=== PATIENT | female | born 1955 | race Caucasian/White ===

== ENCOUNTER 2019-05-07 13:03 | Inpatient (IN) | payer OTHER ==
[~2019-05-07] VITALS: Ht 162.6 cm; Wt 70.0 kg
[2019-05-07 16:37] LABS: BASOPHIL % 0.9 % (0-2); PLATELET COUNT 325 x10^3mcL (130-400); RED CELL DISTRIBUTION WIDTH 12.7 % (11.5-14.5)
[2019-05-07 17:20] LABS: CALCIUM 9.2 mg/dL (8.5-10.1); CARBON DIOXIDE 25.3 mmol/L (21-32); CHLORIDE SERUM 104 mmol/L (98-107); CREATININE SERUM 0.8 mg/dL (0.6-1.0); GFR1 > 60 mL/min; GLUCOSE SERUM 97 mg/dL (74-106); POTASSIUM SERUM 3.5 mmol/L (3.5-5.1); SODIUM SERUM 140 mmol/L (136-145)
[2019-05-07 17:24] LABS: ALBUMIN 4.3 g/dL (3.4-5.0); ALKALINE PHOSPHATASE 85 U/L (46-116); ALT/SGPT 33 U/L (14-59); AST/SGOT 16 U/L (15-37); BILIRUBIN TOTAL 0.6 mg/dL (0.20-1.00); CHOLESTEROL 173 mg/dL (<200)
[2019-05-07 17:26] LABS: TOTAL PROTEIN, SERUM 8.4 g/dL (6.4-8.2)
[2019-05-07 23:12] VITALS: BP 153/78
[2019-05-07 23:15] VITALS: Ht 162.6 cm; Wt 70.0 kg
[2019-05-08 05:32] VITALS: BP 112/63
[2019-05-08 05:59] LABS: BASOPHIL % 0.7 % (0-2); PLATELET COUNT 270 x10^3mcL (130-400); RED CELL DISTRIBUTION WIDTH 12.9 % (11.5-14.5)
[2019-05-08 06:44] LABS: CALCIUM 8.6 mg/dL (8.5-10.1); CHLORIDE SERUM 106 mmol/L (98-107); GLUCOSE SERUM 89 mg/dL (74-106); PHOSPHOROUS 4.2 mg/dL (2.5-4.9); POTASSIUM SERUM 3.8 mmol/L (3.5-5.1); SODIUM SERUM 141 mmol/L (136-145)
[2019-05-08 07:02] LABS: CREATININE SERUM 0.7 mg/dL (0.6-1.0); GFR1 > 60 mL/min; MAGNESIUM 2.4 mg/dL (1.8-2.4)
[2019-05-08 08:46] VITALS: BP 117/79
[2019-05-08 09:36] LABS: AMPHETAMINE QUAL UR NONE DETECTED (See below)
[2019-05-08 12:15] VITALS: BP 119/73
[2019-05-08 16:16] VITALS: BP 100/57
[2019-05-08 22:02] VITALS: BP 108/71
[2019-05-09 06:39] VITALS: BP 103/64
[2019-05-09 09:21] VITALS: BP 113/62
[2019-05-09 13:38] VITALS: BP 127/55
[2019-05-09 18:06] VITALS: BP 110/72
[2019-05-09 18:10] VITALS: BP 110/72
== END 2019-05-09 18:56 | disposition home or self-care (01) | DRG 69 ==
LOC: ED 13:03 → DU 22:15 → MU 05-09 17:08
PROVIDERS: Internal Medicine Nephrology; Specialist; ADMIT Internal Medicine Pulmonary Disease
DX: G45.9 Transient cerebral ischemic attack, unspecified (principal); J01.20 Acute ethmoidal sinusitis, unspecified; R29.700 NIHSS score 0; E78.00 Pure hypercholesterolemia, unspecified; R20.2 Paresthesia of skin; Z79.82 Long term (current) use of aspirin; Z68.26 Body mass index [BMI] 26.0-26.9, adult
CPT/HCPCS: 82962; 92526-GN; 92610-GN; G0378; G0480; J7030; Q9967

== ENCOUNTER 2019-07-26 11:24 | Emergency (ER) | payer OTHER, SELFPAY ==
[~2019-07-26] VITALS: Ht 154.9 cm; Wt 54.4 kg
[2019-07-26 11:45] VITALS: Ht 154.9 cm; Wt 54.4 kg
[2019-07-26 13:17] LABS: BASOPHIL % 0.4 % (0-2); PLATELET COUNT 294 x10^3mcL (130-400); RED CELL DISTRIBUTION WIDTH 12.6 % (11.5-14.5)
[2019-07-26 13:19] VITALS: BP 133/81
[2019-07-26 13:24] LABS: CALCIUM 9.5 mg/dL (8.5-10.1); CARBON DIOXIDE 25.8 mmol/L (21-32); CHLORIDE SERUM 102 mmol/L (98-107); CREATININE SERUM 0.6 mg/dL (0.6-1.0); GFR1 > 60 mL/min; GLUCOSE SERUM 101 mg/dL (74-106); POTASSIUM SERUM 3.9 mmol/L (3.5-5.1); SODIUM SERUM 141 mmol/L (136-145)
[2019-07-26 13:29] LABS: ALBUMIN 4.3 g/dL (3.4-5.0); ALKALINE PHOSPHATASE 80 U/L (46-116); ALT/SGPT 32 U/L (14-59); AST/SGOT 24 U/L (15-37); BILIRUBIN TOTAL 0.9 mg/dL (0.20-1.00); TOTAL PROTEIN, SERUM 8.6 g/dL (6.4-8.2)
== END 2019-07-26 13:20 | disposition home or self-care (01) ==
LOC: ED 11:24
PROVIDERS: Emergency Medicine
DX: J03.90 Acute tonsillitis, unspecified (principal); Z20.828 Contact with and (suspected) exposure to other viral communicable diseases
CPT/HCPCS: 36415; 87804; Q0092